=== PATIENT | female | born 1975 | race Two or more races ===

== ENCOUNTER 2022-01-16 14:45 | Emergency (ER) | payer MEDICAID, OTHER ==
[~2022-01-16] VITALS: Ht 165.1 cm; Wt 54.4 kg
[2022-01-16] MEDS ORDERED: IOHEXOL 300 MG/ML 100ML BOTTLE IJ ONE (15:11)
[2022-01-16] MEDS ORDERED: KETOROLAC TROMETH 30 MG/ML 1ML VIAL IV ONE (15:15)
[2022-01-16] MEDS ORDERED: ONDANSETRON HCL 4 MG/2 ML VIAL IV ONE (15:15)
[2022-01-16] MEDS ORDERED: LABETALOL HCL 5 MG/ML 4ML SYRINGE IV ONE ×2 (15:30→16:30)
[2022-01-16 15:43] LABS: Basophils # (auto) 0.1 10 ^3/uL (0-0.2); Eosinophils # (auto) 0.1 10 ^3/uL (0-0.8); Eosinophils % (auto) 0.8 % (0.0-7.0); Hematocrit 38.2 % (36.0-46.0); Hemoglobin 13.2 g/dL (12.2-16.2); Lymphocytes # (auto) 1.4 10 ^3/uL (0.4-5.4); Lymphocytes % (auto) 16.5 % (10.0-50.0); Mean Corpuscular Hemoglobin 31.8 pg (28.0-32.0); Mean Corpuscular Hgb Conc. 34.6 g/dL (32.0-36.0); Mean Corpuscular Volume 91.7 fL (80.0-100.0); Monocytes # (auto) 0.7 10 ^3/uL (0-1.3); Neutrophils % (auto) 72.7 % (37.0-80.0); Nucleated Red Blood Cells % 0.1 %; Red Blood Cells 4.16 10^6/uL (4.0-5.20); Red Cell Distribution Width 12.8 % (11.8-14.3); White Blood Cell 8.2 10^3/uL (4.4-10.8)
[2022-01-16 15:58] LABS: INR 0.98 (0.9-1.15); Partial Thromboplastin Time 26.4 sec (23.6-33.0)
[2022-01-16 16:03] LABS: Amylase 53 U/L (25-115); Blood Alcohol < 3.0 mg/dL (0-5); Lipase 234 U/L (73-393)
[2022-01-16] MEDS ORDERED: hydrALAZINE HCL 20 MG/ML VL IV ONE (16:45)
[2022-01-16] MEDS ORDERED: ENOXAPARIN SOD 100 MG/1 ML SYRINGE SC ONE (17:00)
[2022-01-16] MEDS ORDERED: ASPirin 325 MG TAB PO ONE (17:00)
[2022-01-16 17:45] VITALS: BP 181/114
[2022-01-16] MEDS ORDERED: MORPHINE SULFATE INJECTION 2 MG/ML SYRG IV ONE (17:45)
[2022-01-16] MEDS ORDERED: cloNIDine HCL 0.1 MG TAB PO ONE (17:45)
[2022-01-16] MEDS ORDERED: NTG 0.1MG/HR TOPICAL PATCH TD ONE (17:45)
[2022-01-16] MEDS ORDERED: hydrALAZINE HCL 20 MG/ML VL IV PRN (19:00)
[2022-01-16] MEDS ORDERED: MORPHINE SULFATE INJECTION 2 MG/ML SYRG IV PRN ×2 (19:00)
[2022-01-16] MEDS ORDERED: SODIUM CHLORIDE 0.9% 3,000 ML IV SCH (19:00)
[2022-01-16] MEDS ORDERED: ONDANSETRON HCL 4 MG/2 ML VIAL IV PRN (19:00)
[2022-01-16] MEDS ORDERED: NITROGLYCERIN 0.4 MG SL TAB SL PRN (19:00)
[2022-01-16] MEDS ORDERED: NICOTINE 14 MG/24HR TOPICAL PATCH TD ONE (19:15)
[2022-01-16 19:16] LABS: Albumin 3.4 g/dL (3.4-5.0); Calcium 8.9 mg/dL (8.5-10.1); Potassium 3.2 mmol/L (3.5-5.1)
[2022-01-16 19:19] LABS: BUN/Creatinine Ratio 27.1
[2022-01-16 19:22] LABS: Bilirubin, Total 0.2 mg/dL (0.2-1.0); Total Protein 6.5 g/dL (6.4-8.2)
[2022-01-17] MEDS ORDERED: NICOTINE 14 MG/24HR TOPICAL PATCH TD SCH (10:00)
[2022-01-17] MEDS ORDERED: ENOXAPARIN SOD 40 MG/0.4 ML SYRINGE SC SCH (10:00)
== END 2022-01-16 19:06 | disposition left against medical advice (07) ==
LOC: ER 14:45 → EDBD 14:45 → ER 19:06
DX: K52.9 Noninfective gastroenteritis and colitis, unspecified (principal); I10 Essential (primary) hypertension; R41.0 Disorientation, unspecified
CPT/HCPCS: 36415; 80053; 80320; 82150; 83690; 84484; 84702; 85025; 85379; 85610; 85730; 93005; 96374; 96375; 96376; 99285; J0360; J1650; J1885; J2270; J2405; J3490; Q9967